=== PATIENT | male | born 1990 | race Two or more races ===

== ENCOUNTER 2024-04-17 17:34 | Emergency (ER) | payer MEDICAID, OTHER ==
[~2024-04-17] VITALS: Ht 177.8 cm; Wt 90.7 kg
[2024-04-17 17:55] VITALS: O2SAT 99
[2024-04-17] MEDS ORDERED: predniSONE 50 MG TABLET ONE (18:21)
[2024-04-17] MEDS ORDERED: AZITHROMYCIN 250 MG TABLET ONE (18:21)
[2024-04-17] MEDS ORDERED: PROM118S5 PO (18:22)
[2024-04-17] MEDS ORDERED: AZIT500T PO (18:22)
[2024-04-17] MEDS ORDERED: PRED50TA PO (18:22)
[2024-04-17] MEDS: predniSONE 50 MG TABLET PO ONE (18:24)
[2024-04-17] MEDS: AZITHROMYCIN 250 MG TABLET PO ONE (18:24)
== END 2024-04-17 18:26 | disposition home or self-care (01) ==
LOC: ER 17:34
DX: J18.9 Pneumonia, unspecified organism (principal); Z79.52 Long term (current) use of systemic steroids; Z20.822 Contact with and (suspected) exposure to COVID-19
CPT/HCPCS: 99283; 87426; 87804 ×2; J7512; A4606; A4663; Q0144